=== PATIENT | female | born 1985 | race Caucasian/White ===

== ENCOUNTER 2018-06-22 20:45 | Inpatient (IN) | payer BC ==
[2018-06-22] MEDS ORDERED: MISOPROSTOL 0.2 MG TABLET ONE (22:26)
[2018-06-22] MEDS ORDERED: OXYTOCIN 10 UNIT/ML VIAL ONE (22:26)
[2018-06-22] MEDS ORDERED: OXYTOCIN/NORMAL SALINE 20 UNIT/1,000 ML RTUINJ ONE (22:27)
[2018-06-22] MEDS ORDERED: LIDOCAINE 1% INJ-PF (10 MG/ML) 30 ML SDV ONE (22:27)
[2018-06-22] MEDS ORDERED: FENTANYL/BUPIVACAINE/NS/PF 300 MCG/150 ML RTUINJ EPI ONE (22:37)
[2018-06-22] MEDS ORDERED: PHENYLEPHRINE HCL INJ/PF 10 MG/1 ML SDV ONE (22:37)
[2018-06-22] MEDS ORDERED: BUPIVACAINE HCL 0.5 % INJ/PF 30 ML SDV ONE (22:37)
[2018-06-22] MEDS ORDERED: EPHEDRINE SULFATE INJ 50 MG/1 ML AMPULE ONE (22:37)
[2018-06-22] MEDS ORDERED: FENTANYL CITRATE INJ/PF 100 MCG/2 ML AMPUL ONE (22:39)
[2018-06-22 22:55] LABS: ABSOLUTE EOSINOPHILS # (AUTO) 0.1 10^3/uL (0.0-0.6); ABSOLUTE LYMPHOCYTES (AUTO) 2.5 10^3/uL (0.5-4.7); ABSOLUTE MONOCYTES (AUTO) 0.9 10^3/uL (0.1-1.4); ABSOLUTE NEUT (AUTO) 9.4 10^3/uL (1.7-8.2); BASOPHILS % (AUTO) 0.3 % (0-2); EOSINOPHILS % (AUTO) 0.6 % (0-6); HEMATOCRIT 37.3 % (36.0-47.0); HEMOGLOBIN 12.6 g/dL (12.0-15.5); LYMPHOCYTES % (AUTO) 19.3 % (13-45); MEAN CORPUSCULAR HEMOGLOBIN 30.3 pg (27.0-33.4); MEAN CORPUSCULAR HGB CONC 33.9 g/dL (32.0-36.0); MEAN CORPUSCULAR VOLUME 89 fl (80-97); MONOCYTES % (AUTO) 6.8 % (3-13); PLATELET COUNT 246 10^3/uL (150-450); RED BLOOD COUNT 4.18 10^6/uL (3.72-5.28); RED CELL DISTRIBUTION WIDTH 13.9 % (11.5-14.0); TOTAL CELLS COUNTED % (AUTO) 100 %; WHITE BLOOD COUNT 12.8 10^3/uL (4.0-10.5)
--- NOTE | 2018-06-22 23:17 | Admission Physical ---
Datetime Report Generated by CPN: 06/22/2018 23:17 CURRENT ADMISSION Chief Complaint: Uterine Contractions Indication for Induction: Not Applicable Admit Impression : Term, Intrauterine Admit Plan: Initiate Labor Protocol ALLERGIES Medication Allergies: Yes Medication Allergies: minocycline (06/22/2018) Latex: No Latex Allergies OBSTETRICAL HISTORY EDC: 06/17/2018 00:00 : 2 Para: 1 Term: 1 : 0 SAB: 0 IAB: 0 Ectopic: 0 Livin Cesareans: 0 VBACs: 0 Multiple Births: 0 Gestational Diabetes: No Rh Sensitization: No Incompetent Cervix: No ELAN: No Infertility: No ART Treatment: No Uterine Anomaly: No IUGR: No Hx Previous C/S: No Macrosomia: No Hx Loss/Stillborn: No PIH: No Hx : No Placenta Previa/Abruption: No Depression/PP Depression: No PTL/PROM: No Post Hemorrhage: No Current Procedures: Ultrasound; NST Obstetrical History Comments: g1 - 05/13/2016 male g2 - current SEE RECORDS Alcohol: No Marijuana : No Cocaine: No Other Illicit Drugs: No Cigarettes: Never Smoker. [id number] MEDICAL HISTORY Diabetes: No Blood Transfusion: No Pulmonary Disease (Asthma, TB): No Breast Disease: No Hypertension: No Director Of Conservation Surgery: No Heart Disease: No Hosp/Surgery: No Autoimmune Disorder: No Anesthetic Complications: No Kidney Disease: No Abnormal Pap Smear: Yes Neuro/Epilepsy: No Psychiatric Disorders: No Other Medical Diseases: No Hepatitis/Liver Disease: No Significant Family History: No Varicosities/Phlebitis: No Trauma/Violence : No Thyroid Dysfunction: No Medical History Comments: h/o ascus pap - normal f/u INFECTIOUS HISTORY Gonorrhea: No Genital Herpes: No Chlamydia: No Tuberculosis: No Syphilis: No Hepatitis: No HIV/AIDS Exposure: No Rash or Viral Illness: No HPV: No PHYSICAL EXAM General: Normal HEENT: Normal Neurologic: Normal Thyroid: Normal Heart: Normal Lungs: Normal Breast: Deferred Back: Normal Abdomen: Normal Genitourinary Exam: Normal Extremities: Normal DTRs: Normal Pelvic Type: Adequate FETUS A EGA: 40.5 PLANS FOR LABOR AND DELIVERY Labor and Delivery: None Pain Management: Epidural Feeding Preference: Breast (Annotations: Data stored by [facility] on behalf of user) Benefit of Breast Feed Discussed: Yes Circumcision: N/A INFORMED CONSENT Signature: with User ID: [email or web address]
[2018-06-22] MEDS ORDERED: RINGERS SOLUTION,LACTATED 1,000 ML IV ONE (23:27)
[2018-06-22] MEDS ORDERED: RINGERS SOLUTION,LACTATED 1,000 ML IV PRN (23:27)
[2018-06-23] MEDS ORDERED: ZOLPIDEM TARTRATE 5 MG TABLET PO PRN (00:51)
[2018-06-23] MEDS ORDERED: MEASLES,MUMPS&RUBELLA VACC/PF 0.5 ML VIAL SUBCUT PRN (00:51)
[2018-06-23] MEDS ORDERED: PROMETHAZINE HCL 25 MG SUPP.RECT PR PRN (00:51)
[2018-06-23] MEDS ORDERED: PROMETHAZINE HCL 25 MG TABLET PO PRN (00:51)
[2018-06-23] MEDS ORDERED: PSEUDOEPHEDRINE HCL 30 MG TABLET PO PRN (00:51)
[2018-06-23] MEDS ORDERED: DIPHENHYDRAMINE HCL 25 MG CAPSULE PO PRN (00:51)
[2018-06-23] MEDS ORDERED: DIBUCAINE 1% OINTMENT 28 GM TP PRN (00:51)
[2018-06-23] MEDS ORDERED: DIPH/PERTUSS(ACELL)/TETANUS VAC/PF 0.5 ML SYR (>=10YO) IM PRN (00:51)
[2018-06-23] MEDS ORDERED: ACETAMINOPHEN 650 MG SUPP.RECT PR PRN (00:51)
[2018-06-23] MEDS ORDERED: ACETAMINOPHEN WITH CODEINE #3 TABLET PO PRN (00:51)
[2018-06-23] MEDS ORDERED: GLYCERIN/WITCH HAZEL LEAF 1 EACH MED..PAD TP PRN (00:51)
[2018-06-23] MEDS ORDERED: BENZOCAINE/MENTHOL AEROSOL SPRAY 56 ML TOP PRN (00:51)
[2018-06-23] MEDS ORDERED: MAGNESIUM HYDROXIDE SUSP 30 ML UDCUP PO PRN (00:51)
[2018-06-23] MEDS ORDERED: NA PHOS,M-B/NA PHOS,DI-BA (ADULT) 133 ML ENEMA PR PRN (00:51)
[2018-06-23] MEDS ORDERED: OXYTOCIN/NORMAL SALINE 20 UNIT/1,000 ML RTUINJ IV PRN (00:51)
[2018-06-23] MEDS ORDERED: PROMETHAZINE HCL INJ 25 MG/1 ML VIAL IV PRN (00:51)
--- NOTE | 2018-06-23 01:02 | Warning Signs in Babies ---
VOD Warning Signs Datetime Report Generated by [facility]: 06/23/2018 01:02 VOD#608 -Warning Signs in Babies: Needs to be viewed. (06/22/2018 20:49:Sidra Kohler RN)
--- NOTE | 2018-06-23 03:59 | Delivery Summary ---
Del Sum A-C Datetime Report Generated by CPN: 06/23/2018 03:59 DELIVERY PERSONNEL DELIVERY PERSONNEL: [id number] Delivery Doctor:: Lobo Gilliland MD Labor and Delivery Nurse:: Sidra Kohler RNnutritional services host Nurse:: Lian Galvan RN Highway Design Engineer:: Kady Guerrero RN Materials Director/RAILROAD COMMISSIONER: Deepti Green, ST MATERNAL INFORMATION Delivery Anesthesia: Epidural Medications After Delivery: Pitocin Drip 20 Units/1000ml NSS; Cytotec 1000mcg Per Rectum/Vagina Maternal Complications: None LABOR SUMMARY EDC: 06/17/2018 00:00 No. Babies in Womb: 1 Attempted: No Labor Anesthesia: Epidural LABOR INFORMATION Reason for Induction: Not Applicable Onset of Labor: 06/22/2018 19:45 Complete Dilatation: 06/23/2018 00:24 Oxytocin: N/A Group B Beta Strep: negative Antibiotics # of Doses: N/A Steroids Given: None Reason Steroids Not Administered: Not Applicable MEMBRANES Membranes Rupture Method: Artificial Rupture of Membranes: 06/22/2018 23:58 Length of Rupture (hr): 0.77 Amniotic Fluid Color: Clear Amniotic Fluid Amount: Small Amniotic Fluid Odor: Normal STAGES OF LABOR Stage 1 hr: 4 Stage 1 min: 39 Stage 2 hr: 0 Stage 2 min: 20 Stage 3 hr: 0 Stage 3 min: 2 Total Time in Labor hr: 5 Total Time in Labor min: 1 VAGINAL DELIVERY Episiotomy: None Laceration #1: None Laceration Extension #1: N/A Laceration Repair: Not Applicable Sponge Count Correct: N/A CSECTION DELIVERY Primary Indication: N/A CSection Incidence: N/A Labor: N/A Elective: N/A CSection Incision: N/A BABY A INFORMATION Infant Delivery Date/Time: 06/23/2018 00:44 Method of Delivery: Vaginal Born in Route : No : N/A Forceps: N/A Vacuum Extraction: N/A Shoulder Dystocia : No PRESENTATION/POSITION BABY A Presentation: Cephalic Cephalic Presentation: Vertex Vertex Position: Left Occipital Anterior Breech Presentation: N/A PLACENTA INFORMATION BABY A Placenta Delivery Time : 06/23/2018 00:46 Placenta Method of Delivery: Spontaneous Placenta Status: Delivered SCORES BABY A Heart Rate 1 min: >100 bpm Resp Effort 1 min: Good Cry Reflex Irritability 1 min: Cough or Sneeze or Pulls Away Muscle Tone 1 min: Active Motion Color 1 min: Blue/Pale Resuscitation Effort 1 min: Tactile Stimulation SCORE 1 MIN: 8 Heart Rate 5 min: >100 bpm Resp Effort 5 min: Good Cry Reflex Irritability 5 min: Cough or Sneeze or Pulls Away Muscle Tone 5 min: Active Motion Color 5 min: Blue/Pale Resuscitation Effort 5 min: Tactile Stimulation SCORE 5 MIN: 8 INFANT INFORMATION BABY A Gestational Age at Delivery: 40.6 Gestational Status: Full Term- 39- 40.6 Weeks Outcome : Liveborn Condition : Stable Infant Sex: Female IDENTIFICATION BABY A Infant Verification Date/Time: 06/23/2018 01:04 ID Band Number: [id number] Mother's Name Verified: Yes Infant RN Verifying Infant: K. Cole _ B. Ring WEIGHT/LENGTH BABY A Birthweight (gm): 3330 Infant Weight (lb): 7 Infant Weight (oz): 5 Infant Length (in): 20.00 Infant Length (cm): 50.80 CORD INFORMATION BABY A No. Cord Vessels: 3 Nuchal Cord : N/A Cord Blood Taken: Yes-For Eval (Mom's Blood Type - or O+) Suction: Mouth; Nose ASSESSMENT BABY A Complications: None Physical Findings at Delivery: Within Normal Limits Physical Findings- Other: See nursery assessment nurse Infant Respirations: Appears Normal Skin to Skin: Yes Skin to Skin Time (min): 75 Field Coil Winder/ALS Called : No Infant Care By: Geni Galvan RN Transferred To: Remains with Mother BABY B INFORMATION : N/A SIGNATURES Signature: with User ID: [email or web address]
[2018-06-23] MEDS: IBUPROFEN 800 MG TABLET PO SCH ×3 (05:43→21:03)
--- NOTE | 2018-06-23 09:13 | PDOC PROGRESS REPORT ---
Subjective-OB Progress Note for:: 06/23/18 Subjective: Doing well, no c/o, , voiding, family at BS Physical Exam (OB) Vital Signs: Temp Pulse Resp BP Pulse Ox 98.4 F 65 16 108/63 96 06/23/18 08:25 06/23/18 08:25 06/23/18 08:25 06/23/18 08:25 06/23/18 08:25 Intake & Output 06/22/18 06/23/18 06/24/18 06:59 06:59 06:59 Intake Total 1215 Balance 1215 Weight 73.4 kg - Lochia Lochia Amount: Small 10-25 ml - Abdomen Description: Tender, Soft Hernia Present: No Fundal Description: Firm, Midline Fundal Height: u/u - u/2 Objective-Diagnostic Laboratory: 06/22/18 22:42 06/22/18 06/22/18 22:42 22:42 WBC 12.8 H RBC 4.18 Hgb 12.6 Hct 37.3 MCV 89 MCH 30.3 MCHC 33.9 RDW 13.9 Plt Count 246 Seg Neutrophils % 73.0 Lymphocytes % 19.3 Monocytes % 6.8 Eosinophils % 0.6 Basophils % 0.3 Absolute Neutrophils 9.4 H Absolute Lymphocytes 2.5 Absolute Monocytes 0.9 Absolute Eosinophils 0.1 Absolute Basophils 0.0 Blood Type O POSITIVE Antibody Screen NEGATIVE Assessment and Plan(PN) - Assessment and Plan (1) Acute blood loss anemia Is this a current diagnosis for this admission?: Yes (2) Vaginal delivery Is this a current diagnosis for this admission?: Yes - Time Spent with Patient Time with patient: Less than 15 minutes Medications reviewed and adjusted accordingly: Yes - Disposition Anticipated Discharge: Home Within: within 24 hours
[2018-06-23] MEDS: DOCUSATE SODIUM 100 MG CAPSULE PO SCH ×2 (10:17→18:01)
[2018-06-23] MEDS: PRENATAL VITAMIN W DHA CAPSULE PO SCH (10:18)
[2018-06-23] MEDS: FERROUS SULFATE 325 MG TABLET PO SCH ×2 (10:18→18:00)
[2018-06-23] MEDS: SENNOSIDES/DOCUSATE 8.6-50 MG 1 EACH TABLET PO SCH (10:18)
[2018-06-23] MEDS: FAMOTIDINE 20 MG TABLET PO SCH ×2 (10:18→21:03)
[2018-06-24] MEDS: IBUPROFEN 800 MG TABLET PO SCH (06:12)
[2018-06-24 07:00] LABS: HEMATOCRIT 35.6 % (36.0-47.0); HEMOGLOBIN 12.1 g/dL (12.0-15.5); MEAN CORPUSCULAR HEMOGLOBIN 30.6 pg (27.0-33.4); MEAN CORPUSCULAR VOLUME 90 fl (80-97); PLATELET COUNT 199 10^3/uL (150-450); RED BLOOD COUNT 3.95 10^6/uL (3.72-5.28); RED CELL DISTRIBUTION WIDTH 13.9 % (11.5-14.0)
[2018-06-24 07:57] VITALS: BP 112/70
[2018-06-24] MEDS: SENNOSIDES/DOCUSATE 8.6-50 MG 1 EACH TABLET PO SCH (09:30)
[2018-06-24] MEDS: FAMOTIDINE 20 MG TABLET PO SCH (09:30)
[2018-06-24] MEDS: DOCUSATE SODIUM 100 MG CAPSULE PO SCH (09:30)
[2018-06-24] MEDS: PRENATAL VITAMIN W DHA CAPSULE PO SCH (09:30)
[2018-06-24] MEDS: FERROUS SULFATE 325 MG TABLET PO SCH (09:30)
--- NOTE | 2018-06-24 10:10 | PDOC PROGRESS REPORT ---
Subjective-OB Progress Note for:: 06/24/18 Subjective: Doing well, no c/o, family at BS, wants to go home today Physical Exam (OB) Vital Signs: Temp Pulse Resp BP Pulse Ox 97.8 F 62 18 112/70 98 06/24/18 08:53 06/24/18 08:53 06/24/18 08:53 06/24/18 07:49 06/24/18 08:53 Intake & Output 06/23/18 06/24/18 06/25/18 06:59 06:59 06:59 Intake Total 1215 Balance 1215 Weight 73.4 kg - Lochia Lochia Amount: Scant < 10 ml Lochia Color: Rubra/Red - Abdomen Description: Tender, Soft, Round Hernia Present: No Fundal Description: Firm, Midline Fundal Height: u/u - u/2 Objective-Diagnostic Laboratory: 06/24/18 06:54 06/24/18 06:54 WBC 10.0 RBC 3.95 Hgb 12.1 Hct 35.6 L MCV 90 MCH 30.6 MCHC 34.0 RDW 13.9 Plt Count 199 Assessment and Plan(PN) - Assessment and Plan (1) Acute blood loss anemia Is this a current diagnosis for this admission?: Yes (2) Vaginal delivery Is this a current diagnosis for this admission?: Yes - Time Spent with Patient Time with patient: Less than 15 minutes Medications reviewed and adjusted accordingly: Yes - Disposition Anticipated Discharge: Home Within: Other - home today
--- NOTE | 2018-06-24 10:14 | PDOC DISCHARGE SUMMARY ---
Final Diagnosis Discharge Date: 06/24/18 - Final Diagnosis (1) Acute blood loss anemia Is this a current diagnosis for this admission?: Yes (2) Vaginal delivery Is this a current diagnosis for this admission?: Yes Discharge Data - Discharge Medication Home Medications: Cetirizine HCl [Zyrtec] 10 mg PO DAILY 05/12/16 Pnv,Calcium 72/Iron/Folic Acid [Pnv Plus Multivit Tab] 1 tab PO DAILY 05/12/16 Gestational Age: 40.6 Reason(s) for Admission: Onset of Labor Procedures: NST, Ultrasound Intrapartum Procedure(s): Spontaneous Vaginal Delivery - [place] Data Baby 1 Female Home with Mother: Yes Complications: No - Diagnosis Test Laboratory: Temp Pulse Resp BP Pulse Ox 97.8 F 62 18 112/70 98 06/24/18 08:53 06/24/18 08:53 06/24/18 08:53 06/24/18 07:49 06/24/18 08:53 06/22/18 06/24/18 22:42 06:54 RBC 4.18 3.95 Hgb 12.6 12.1 Hct 37.3 35.6 L - Discharge information/Instructions Discharge Activity: Activity As Tolerated, Balance Activity w/Rest, No Lifting Over 10 Pounds, No Lifting/Push/Pulling, Pelvic Rest, No tub bath Discharge Diet: As Tolerated, Regular Disposition: HOME, SELF-CARE Follow up with: [facility] in: 3, Weeks
== END 2018-06-24 13:01 | disposition home or self-care (01) | DRG 775 ==
LOC: LC 20:45 → LR 22:24 → 2S 06-23 03:08
PROVIDERS: ADMIT Obstetrics & Gynecology Gynecology; ATTEND Obstetrics & Gynecology Gynecology
PROC: 4A1HXCZ Monitoring of Products of Conception, Cardiac Rate, External Approach (ICD-10-PCS; 2018-06-22)
PROC: 10E0XZZ Delivery of Products of Conception, External Approach (ICD-10-PCS; principal; 2018-06-23)
DX: O99.02 Anemia complicating childbirth (principal); D62 Acute posthemorrhagic anemia; Z88.1 Allergy status to other antibiotic agents; Z3A.40 40 weeks gestation of pregnancy; Z37.0 Single live birth
CPT/HCPCS: 36415; 85025; 85027; 86592; 86850; 86900; 86901; 94760; J2370; J2590; J3010; J3490